=== PATIENT | male | born 1930 | race African-American/Black ===

== ENCOUNTER 2018-07-06 20:23 | Inpatient (IN) | payer OTHER ==
[2018-07-06] MEDS ORDERED: morphine 2 MG INJ IV (22:00)
[2018-07-06] MEDS ORDERED: MAGNESIUM HYDROXIDE 30ML CUP PO (22:00)
[2018-07-06] MEDS ORDERED: BISACODYL (EC) 5 MG TAB PO (22:00)
[2018-07-06] MEDS ORDERED: NITROGLYCERIN (SL) 0.4 MG TAB SL (22:00)
[2018-07-07 01:39] LABS: TROPONIN-I 0.547 ng/ml (0.000-0.120)
[2018-07-07] MEDS: CEFTRIAXONE 1 GM/50 ML (PMX) 50 ML IVPB (04:42)
[2018-07-07 06:10] LABS: ADD MAN DIFF? NO
[2018-07-07 06:21] LABS: BASOPHILS % 0.1 % (0.0-2.0); EOSINOPHILS # 0.1 10^3/ul (0.0-0.5); EOSINOPHILS % 0.9 % (0.0-7.0); HEMOGLOBIN 13.1 g/dl (14.0-18.0); LYMPHOCYTES # 0.6 10^3/ul (0.8-2.9); LYMPHOCYTES % 8.8 % (15.0-51.0); MEAN CORPUSCULAR HEMOGLOBIN 33.6 pg (29.0-33.0); MEAN CORPUSCULAR HGB CONC 32.8 g/dl (32.0-37.0); MEAN CORPUSCULAR VOLUME 102.6 fl (82.0-101.0); MEAN PLATELET VOLUME 10.4 fl (7.4-10.4); MONOCYTE # 0.7 10^3/ul (0.3-0.9); MONOCYTES % 9.7 % (0.0-11.0); NEUTROPHIL # 5.6 10^3/ul (1.6-7.5); NEUTROPHILS % 80.1 % (39.0-77.0); PLATELET COUNT 104 10^3/UL (140-415); POSITIVE DIFF @See below; RED CELL DISTRIBUTION WIDTH 13.2 % (11.5-14.5)
[2018-07-07 06:40] LABS: ALANINE AMINOTRANSFERASE 49 IU/L (13-69); ALBUMIN 2.8 g/dl (3.3-4.9); ALBUMIN/GLOBULIN RATIO 0.87; ALKALINE PHOSPHATASE 49 IU/L (42-121); ANION GAP 7 (8-16); ASPARTATE AMINO TRANSFERASE 49 IU/L (15-46); BILIRUBIN,INDIRECT 0.8 mg/dl (0-1.1); BILIRUBIN,TOTAL 0.8 mg/dl (0.2-1.3); BLOOD UREA NITROGEN 28 mg/dl (7-20); CALCIUM 8.7 mg/dl (8.4-10.2); CARBON DIOXIDE 28 mmol/L (21-31); CHLORIDE 108 mmol/L (97-110); CHOL/HDL RATIO 2.3 RATIO; CHOLESTEROL 128 mg/dl (100-200); CREATININE 1.61 mg/dl (0.61-1.24); GLUCOSE 98 mg/dl (70-220); HDL CHOLESTEROL 54 mg/dl (31-75); LDL CHOLESTEROL,CALCULATED 63 mg/dl; POTASSIUM 3.9 mmol/L (3.5-5.1); SODIUM 139 mmol/L (135-144); TRIGLYCERIDES 55 mg/dl (0-149)
[2018-07-07] MEDS: ASPIRIN 81 MG TAB PO (08:58)
[2018-07-07] MEDS: TIMOLOL 0.25% 5 ML OPH BOTH EYES ×3 (09:05→21:10)
[2018-07-07] MEDS: ENOXAPARIN 40 MG/0.4 ML SYG SC (09:17)
[2018-07-07 12:06] LABS: TROPONIN-I 0.257 ng/ml (0.000-0.120)
[2018-07-07] MEDS: ACETAMINOPHEN 325 MG TAB PO (16:06)
[2018-07-07] MEDS: SOD CHLORIDE 0.9% 1,000 ML IV (17:43)
[2018-07-07] MEDS ORDERED: morphine LIQ (10 MG/5 ML) CUP PO (19:00)
[2018-07-08 01:26] LABS: ADD UMIC NO; UR ASCORBIC ACID NEGATIVE (NEGATIVE); UR BILIRUBIN (Dip) NEGATIVE (NEGATIVE); UR BLOOD (Dip) NEGATIVE (NEGATIVE); UR CLARITY CLEAR (CLEAR); UR COLOR STRAW (YELLOW); UR GLUCOSE (Dip) NEGATIVE (NEGATIVE); UR KETONES (Dip) NEGATIVE (NEGATIVE); UR LEUKOCYTE ESTERASE (Dip) NEGATIVE Leu/ul (NEGATIVE); UR NITRITE (Dip) NEGATIVE (NEGATIVE); UR SPECIFIC GRAVITY (Dip) 1.004 (1.003-1.030); UR TOTAL PROTEIN (Dip) NEGATIVE (NEGATIVE); UR UROBILINOGEN (Dip) NEGATIVE (NEGATIVE)
[2018-07-08] MEDS: CEFTRIAXONE 1 GM/50 ML (PMX) 50 ML IVPB (05:01)
[2018-07-08] MEDS: PANTOPRAZOLE (EC) 40 MG TAB PO (05:22)
[2018-07-08 06:14] LABS: ADD MAN DIFF? NO
[2018-07-08 06:27] LABS: ABNORMAL IP MESSAGE 1; BASOPHILS % 0.2 % (0.0-2.0); EOSINOPHILS # 0.1 10^3/ul (0.0-0.5); EOSINOPHILS % 1.6 % (0.0-7.0); HEMOGLOBIN 13.6 g/dl (14.0-18.0); LYMPHOCYTES # 0.4 10^3/ul (0.8-2.9); LYMPHOCYTES % 7.8 % (15.0-51.0); MEAN CORPUSCULAR HEMOGLOBIN 32.5 pg (29.0-33.0); MEAN CORPUSCULAR HGB CONC 32.4 g/dl (32.0-37.0); MEAN CORPUSCULAR VOLUME 100.5 fl (82.0-101.0); MEAN PLATELET VOLUME 10.4 fl (7.4-10.4); MONOCYTE # 0.7 10^3/ul (0.3-0.9); MONOCYTES % 13.5 % (0.0-11.0); NEUTROPHIL # 3.9 10^3/ul (1.6-7.5); NEUTROPHILS % 76.3 % (39.0-77.0); PLATELET COUNT 101 10^3/UL (140-415); POSITIVE DIFF @See below; RED BLOOD COUNT 4.18 10^6/ul (4.70-6.10); RED CELL DISTRIBUTION WIDTH 13.1 % (11.5-14.5)
[2018-07-08 06:27] LABS: WHITE BLOOD COUNT 5.1 10^3/ul (4.8-10.8)
[2018-07-08 06:33] LABS: HEMOGLOBIN A1C 5.6 % (0-5.9)
[2018-07-08 07:16] LABS: ANION GAP 8 (8-16); BLOOD UREA NITROGEN 20 mg/dl (7-20); CALCIUM 8.5 mg/dl (8.4-10.2); CARBON DIOXIDE 26 mmol/L (21-31); CHLORIDE 107 mmol/L (97-110); GLUCOSE 95 mg/dl (70-220); POTASSIUM 3.9 mmol/L (3.5-5.1); SODIUM 137 mmol/L (135-144)
[2018-07-08] MEDS: ACETAMINOPHEN 650 MG SUPP PR (08:40)
[2018-07-08] MEDS: TIMOLOL 0.25% 5 ML OPH BOTH EYES ×3 (08:50→20:50)
[2018-07-08] MEDS: ASPIRIN 81 MG TAB PO (09:59)
[2018-07-08] MEDS: ENOXAPARIN 40 MG/0.4 ML SYG SC (10:14)
[2018-07-08] MEDS: SOD CHLORIDE 0.9% 1,000 ML IV (13:00)
[2018-07-08] MEDS: CLOPIDOGREL 75 MG TAB PO (16:13)
[2018-07-08] MEDS: ISOSORBIDE MONONITRATE(SR)30 MG TAB PO (16:14)
[2018-07-08] MEDS: ATORVASTATIN 10 MG TAB PO (20:50)
[2018-07-09] MEDS: CEFTRIAXONE 1 GM/50 ML (PMX) 50 ML IVPB (04:55)
[2018-07-09] MEDS: PANTOPRAZOLE (EC) 40 MG TAB PO (06:26)
[2018-07-09 06:27] LABS: HEMATOCRIT 36.9 % (42.0-52.0); HEMOGLOBIN 12.1 g/dl (14.0-18.0); MEAN CORPUSCULAR HEMOGLOBIN 33.1 pg (29.0-33.0); MEAN CORPUSCULAR HGB CONC 32.8 g/dl (32.0-37.0); MEAN CORPUSCULAR VOLUME 100.8 fl (82.0-101.0); MEAN PLATELET VOLUME 10.9 fl (7.4-10.4); PLATELET COUNT 103 10^3/UL (140-415); RED BLOOD COUNT 3.66 10^6/ul (4.70-6.10); RED CELL DISTRIBUTION WIDTH 12.9 % (11.5-14.5)
[2018-07-09 06:27] LABS: WHITE BLOOD COUNT 4.2 10^3/ul (4.8-10.8)
[2018-07-09] MEDS: ACETAMINOPHEN 325 MG TAB PO (06:27)
[2018-07-09 06:33] LABS: ADD MAN DIFF? YES
[2018-07-09 06:52] LABS: ANION GAP 6 (8-16); BLOOD UREA NITROGEN 23 mg/dl (7-20); CALCIUM 8.3 mg/dl (8.4-10.2); CARBON DIOXIDE 26 mmol/L (21-31); CHLORIDE 108 mmol/L (97-110); CREATININE 1.43 mg/dl (0.61-1.24); GLUCOSE 92 mg/dl (70-220); SODIUM 136 mmol/L (135-144)
[2018-07-09] MEDS: CLOPIDOGREL 75 MG TAB PO (08:17)
[2018-07-09] MEDS: ASPIRIN 81 MG TAB PO (08:17)
[2018-07-09] MEDS: TIMOLOL 0.25% 5 ML OPH BOTH EYES ×3 (08:17→21:32)
[2018-07-09] MEDS: SOD CHLORIDE 0.9% 1,000 ML IV (08:18)
[2018-07-09] MEDS: ISOSORBIDE MONONITRATE(SR)30 MG TAB PO (08:18)
[2018-07-09] MEDS: ENOXAPARIN 40 MG/0.4 ML SYG SC (08:27)
[2018-07-09 09:40] LABS: ANISOCYTOSIS 1+ (0-0); BAND NEUTROPHILS #M 0.1 10^3/ul (0.0-0.6); BAND NEUTROPHILS % (M) 4 % (0-4); BURR CELLS 1+ (0-0); EOSINOPHILS % (M) 9 % (0-7); LYMPHOCYTES #M 0.3 10^3/ul (0.8-2.9); LYMPHOCYTES % (M) 9 % (15-51); MONOCYTE #M 0.3 10^3/ul (0.3-0.9); MONOCYTES % (M) 9 % (0-11); PLASMAC%(M) 2 % (0); PLATELET ESTIMATE DECREASED; REACTIVE LYMPHOCYTES% (M) 1 % (0-0); SEG NEUT #M 2.8 10^3/ul (1.6-7.5); SEGMENTED NEUTROPHILS (M) % 66 % (39-77); SMUDGE%M 35 % (0-0)
[2018-07-09] MEDS: ATORVASTATIN 10 MG TAB PO (21:32)
[2018-07-10] MEDS: CEFTRIAXONE 1 GM/50 ML (PMX) 50 ML IVPB (05:16)
[2018-07-10] MEDS: PANTOPRAZOLE (EC) 40 MG TAB PO (05:17)
[2018-07-10] MEDS: SOD CHLORIDE 0.9% 1,000 ML IV (05:17)
[2018-07-10] MEDS: ISOSORBIDE MONONITRATE(SR)30 MG TAB PO (09:06)
[2018-07-10] MEDS: ASPIRIN 81 MG TAB PO (09:06)
[2018-07-10] MEDS: CLOPIDOGREL 75 MG TAB PO (09:07)
[2018-07-10] MEDS: TIMOLOL 0.25% 5 ML OPH BOTH EYES ×3 (09:07→21:28)
[2018-07-10] MEDS: ENOXAPARIN 40 MG/0.4 ML SYG SC (09:19)
[2018-07-10] MEDS: REGADENOSON 0.4 MG/5 ML SYG (11:51)
[2018-07-10] MEDS: METOPROLOL 25 MG TAB PO ×2 (13:37→21:28)
[2018-07-10] MEDS: ATORVASTATIN 10 MG TAB PO (21:26)
[2018-07-11] MEDS: CEFTRIAXONE 1 GM/50 ML (PMX) 50 ML IVPB (06:03)
[2018-07-11] MEDS: PANTOPRAZOLE (EC) 40 MG TAB PO (06:04)
[2018-07-11] MEDS: METOPROLOL 25 MG TAB PO (08:22)
[2018-07-11] MEDS: ASPIRIN 81 MG TAB PO (08:22)
[2018-07-11] MEDS: CLOPIDOGREL 75 MG TAB PO (08:22)
[2018-07-11] MEDS: TIMOLOL 0.25% 5 ML OPH BOTH EYES (08:23)
[2018-07-11] MEDS: ISOSORBIDE MONONITRATE(SR)30 MG TAB PO (08:23)
== END 2018-07-11 14:21 | disposition home or self-care (01) | DRG 281 ==
LOC: 6WM 20:23
PROVIDERS: Internal Medicine Nephrology
DX: I21.4 Non-ST elevation (NSTEMI) myocardial infarction (principal); N17.9 Acute kidney failure, unspecified; I69.954 Hemiplegia and hemiparesis following unspecified cerebrovascular disease affecting left non-dominant side; D64.9 Anemia, unspecified; I25.10 Atherosclerotic heart disease of native coronary artery without angina pectoris; K57.90 Diverticulosis of intestine, part unspecified, without perforation or abscess without bleeding; E78.5 Hyperlipidemia, unspecified; I12.9 Hypertensive chronic kidney disease with stage 1 through stage 4 chronic kidney disease, or unspecified chronic kidney disease; N18.9 Chronic kidney disease, unspecified; Z79.82 Long term (current) use of aspirin
CPT/HCPCS: 71045; 76700; 78452; 80048; 80053; 80061; 81003; 83036; 84484; 85025; 87040; 93005; 93017; 93306; 93880; 97161